=== PATIENT | female | born 1995 | race Caucasian/White ===

== ENCOUNTER 2021-07-11 13:17 | Emergency (ER) | payer MEDICAID ==
[~2021-07-11] VITALS: Ht 149.9 cm; Wt 46.0 kg
[2021-07-11 16:01] LABS: BASOPHILS % 0.2 % (0.0-2.0); HEMATOCRIT. 41.3 % (36.0-48.0); HEMOGLOBIN. 13.7 g/dL (12.0-16.0); LYMPHOCYTES % 7.1 % (20.0-50.0); MEAN CORPUSCULAR VOLUME 90.7 fL (81.0-99.0); MEAN PLATELET VOLUME 8.9 fl (7.4-10.4); MONOCYTES % 4.4 % (2.0-8.0); NEUTROPHILS % 88.3 % (40.0-76.0); PLATELET 274 x1000/uL (130-400); RED BLOOD CELL COUNT 4.56 mill/uL (4.2-5.4); RED CELL DISTRIBUTION WIDTH 13.6 % (11.6-14.6)
[2021-07-11 16:06] LABS: CHLORIDE 110 mEq/L (98-107)
[2021-07-11 16:07] LABS: HCG SCREEN NEGATIVE
[2021-07-11 17:45] VITALS: BP 121/78
== END 2021-07-11 17:45 | disposition home or self-care (01) ==
LOC: EDBD 13:17 → ER 13:35
DX: R55 Syncope and collapse (principal); F41.9 Anxiety disorder, unspecified; F32.9 Major depressive disorder, single episode, unspecified; I10 Essential (primary) hypertension
CPT/HCPCS: 36415; 80048; 84703; 85025; 93005; 99284